=== PATIENT | female | born 1975 | race Two or more races ===

== ENCOUNTER 2018-11-09 07:46 | Emergency (ER) | payer MEDICAID ==
[~2018-11-09] VITALS: Ht 152.4 cm; Wt 81.6 kg
[2018-11-09 08:23] VITALS: BP 124/76
[2018-11-09] MEDS ORDERED: KETOROLAC TROMETH 60MG/2ML VIAL IM ONE (09:00)
[2018-11-09] MEDS ORDERED: METHOCARBAMOL 500 MG TAB PO ONE (09:00)
== END 2018-11-09 11:56 | disposition home or self-care (01) ==
LOC: ER 07:49
DX: M79.604 Pain in right leg (principal); M79.605 Pain in left leg; Z88.0 Allergy status to penicillin; Z88.5 Allergy status to narcotic agent
CPT/HCPCS: 93970; 96372; 99284; J1885